=== PATIENT | female | born 1950 ===

== ENCOUNTER 2018-10-27 19:27 | Inpatient (IN) | payer MEDICARE ==
[~2018-10-27] VITALS: Ht 160 cm; Wt 77.7 kg
[2018-10-27 20:31] LABS: BASOPHILS ABSOLUTE AUTO 0.01 K/mm3 (0.00-0.23); BASOPHILS PERCENT AUTO 0 % (0-2); EOSINOPHILS ABSOLUTE AUTO 0.02 K/mm3 (0.00-0.68); EOSINOPHILS PERCENT AUTO 0 % (0-6); Hematocrit 45.4 % (33.0-51.0); Hemoglobin 15.1 g/dL (11.5-16.0); IMMATURE GRAN ABSOLUTE AUTO 0.05 K/mm3 (0.00-0.10); IMMATURE GRAN PERCENT AUTO 1 % (0-1); LYMPHOCYTES ABSOLUTE AUTO 0.54 K/mm3 (0.84-5.20); LYMPHOCYTES PERCENT AUTO 5 % (21-46); MONOCYTES ABSOLUTE AUTO 0.15 K/mm3 (0.16-1.47); MONOCYTES PERCENT AUTO 1 % (4-13); Mean Corpuscular HGB 30.6 pg (26.0-34.0); Mean Corpuscular HGB Conc 33.3 g/dL (31.5-36.5); Mean Corpuscular Volume 92 fL (80-100); Mean Platelet Volume 8.9 fL (9.1-12.4); NEUTROPHILS ABSOLUTE AUTO 9.81 K/mm3 (1.96-9.15); NEUTROPHILS PERCENT AUTO 93 % (41-73); Platelet Count 183 K/mm3 (150-400); RDW Coefficient Variation 13.2 % (11.7-14.2); RDW Standard Deviation 45.1 fL (35.1-46.3); Red Blood Cell Count 4.94 M/mm3 (3.80-5.20); White Blood Cell Count 10.58 K/mm3 (4.00-11.30)
[2018-10-27 20:50] LABS: Albumin, Blood 3.6 g/dL (3.4-5.0); Bilirubin, Total 0.2 mg/dL (0.1-1.0); Bun/Creatinine Ratio 23.2 (12.0-20.0); Calcium, Blood 9.2 mg/dL (8.5-10.1); Creatinine, Blood 0.99 mg/dL (0.40-1.00); Globulin, Blood 3.6 g/dL (2.2-4.0); Potassium, Blood 3.7 mmol/L (3.5-5.5); Total Protein, Blood 7.2 g/dL (6.4-8.2)
[2018-10-27] MEDS ORDERED: HYDROCODON-ACE1 EAC3 PO (21:24)
[2018-10-27] MEDS ORDERED: OXYC10ER PO (21:24)
[2018-10-27] MEDS ORDERED: IBUP800 (21:25)
[2018-10-27] MEDS ORDERED: ALBU90OI61 INH (21:25)
[2018-10-27] MEDS ORDERED: IBUP800 PO (21:25)
[2018-10-27] MEDS ORDERED: BUDE6HFA INH (21:39)
[2018-10-27] MEDS ORDERED: CYCL10 PO (21:39)
[2018-10-27] MEDS ORDERED: Excedrin Extra1 EACH PO (21:39)
[2018-10-27] MEDS ORDERED: ALBU2.5V5 NEB (21:40)
[2018-10-27 23:45] LABS: Source, Urine Clean Catch
[2018-10-27 23:48] LABS: Bilirubin, Urine Neg (Neg); Blood, Urine 2+ (Neg); Glucose Qualitative, Urine Neg (Neg); Ketones, Urine Neg (Neg); Leukocyte Esterase, Urine 1+ (Neg); Nitrite, Urine Neg (Neg); Protein, Urine 1+ (Neg); Urobilinogen, Urine NORM (Normal)
[2018-10-27 23:56] LABS: Appearance, Urine Clear (Clear); Color, Urine Yellow (P-Yellow)
[2018-10-27 23:57] LABS: Bacteria Few /hpf; Red Blood Cells, Urine Rare /hpf (0-2); Squamous Epithelial Cells Few /hpf (Few); White Blood Cells, Urine 0-2 /hpf (0-5)
[2018-10-28 00:39] LABS: Adenovirus Not Detected (NOT DETECT); Bordetella pertussis Not Detected (NOT DETECT); Chlamydophila pneumoniae Not Detected (NOT DETECT); Coronavirus 229E Not Detected (NOT DETECT); Coronavirus HKU1 Not Detected (NOT DETECT); Coronavirus NL63 Not Detected (NOT DETECT); Coronavirus OC43 Not Detected (NOT DETECT); Human Metapneumovirus Not Detected (NOT DETECT); Human Rhinovirus/Enterovirus Not Detected (NOT DETECT); Influenza A Not Detected (NOT DETECT); Influenza A/2009-H1 Not Detected (NOT DETECT); Influenza A/H1 Not Detected (NOT DETECT); Influenza A/H3 Not Detected (NOT DETECT); Influenza B Not Detected (NOT DETECT); Mycoplasma pneumoniae Not Detected (NOT DETECT); Parainfluenza Virus 1 Not Detected (NOT DETECT); Parainfluenza Virus 2 Not Detected (NOT DETECT); Parainfluenza Virus 3 Not Detected (NOT DETECT); Parainfluenza Virus 4 Not Detected (NOT DETECT); Respiratory Syncytial Virus Not Detected (NOT DETECT)
[2018-10-28 04:08] LABS: Hematocrit 41.3 % (33.0-51.0); Hemoglobin 13.7 g/dL (11.5-16.0); Mean Corpuscular HGB 30.4 pg (26.0-34.0); Mean Corpuscular HGB Conc 33.2 g/dL (31.5-36.5); Mean Corpuscular Volume 92 fL (80-100); Mean Platelet Volume 8.9 fL (9.1-12.4); Platelet Count 176 K/mm3 (150-400); RDW Coefficient Variation 13.1 % (11.7-14.2); RDW Standard Deviation 44.4 fL (35.1-46.3); Red Blood Cell Count 4.51 M/mm3 (3.80-5.20); White Blood Cell Count 10.21 K/mm3 (4.00-11.30)
[2018-10-28 04:25] LABS: Alanine Aminotransfer (ALT/SGP 99 U/L (12-78); Albumin, Blood 3.1 g/dL (3.4-5.0); Albumin/Globulin Ratio 0.9 (0.8-1.8); Alk Phos 55 U/L (50-136); Anion Gap 9 mmol/L (6-16); Aspartate Aminotrans (AST/SGOT 87 U/L (12-37); Bilirubin, Total 0.2 mg/dL (0.1-1.0); Blood Urea Nitrogen 18 mg/dL (8-24); Bun/Creatinine Ratio 19.6 (12.0-20.0); CO2, Blood 24 mmol/L (21-32); Calcium, Blood 8.4 mg/dL (8.5-10.1); Chloride, Blood 110 mmol/L (98-108); Creatinine, Blood 0.92 mg/dL (0.40-1.00); Globulin, Blood 3.3 g/dL (2.2-4.0); Glomerular Filtration Rate >60 (60-); Glucose, Blood 192 mg/dL (70-99); Potassium, Blood 3.8 mmol/L (3.5-5.5); Sodium, Blood 143 mmol/L (136-145); Total Protein, Blood 6.4 g/dL (6.4-8.2)
--- NOTE | 2018-10-28 05:29 | NUR ---
SHIFT SUMMARY PT NEW ED ADMIT THIS EVENING. PT FEELING MUCH IMPROVED BY THE TIME SHE ARRIVED. PT FEBRILE AT START OF SHIFT, MEDICATED PER REPORT W/ 1000 MG TYLENOL IN ED, AFEBRILE BY THIS AM. ALSO HTN AND TACHYCARDIC AT START OF SHIFT BUT BOTH IMPROVED THROUGHOUT THE NIGHT. 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 PT TOOK HER OWN OXYCODONE BEFORE ARRIVING TO HER ROOM. DOES NOT AT THIS TIME HAVE HER PAIN MEDICATION ORDERED BUT HAS NOT REQUIRED IT AGAIN THIS EVENING. LUNG SOUNDS DIMINISHED WITH SOME EXPIRATORY WHEEZE. RA WITH O2 SATS IN THE LOWER 90'S. PT DOES NOT WEAR O2 AT HOME. PT FEELING WEEK BUT AMBULATED WELL WITH SBA TO RESTROOM. UA AND RESP PANEL SENT. PT SLEEPING AT THIS TIME.
--- NOTE | 2018-10-28 10:42 | NUR ---
PT CHANGED TO MEDICAL STATUS. PT UPDATED. REPORT CALLED TO MEDICAL FLOOR RN.
--- NOTE | 2018-10-28 11:23 | NUR ---
Avance Directive Education/Spiritual care visit conducted. Patient is sitting up in bed and alert with , Misael, bedside. I talked with them both about the Advance Directive (the process and the importance of it) and left them a booklet to go over at their chase. I also talked with patient about her medical isssues and about her spiritual journey. I listened ampathically, provided pastoral in house counsel and encouragement and provided prayer. Patient and Misael responded well and thanked me for the visit.
--- NOTE | 2018-10-28 12:00 | NUR ---
PT ARRIVED TO ROOM 339 FROM PCU AT 1115 AFTER REPORT RECEIVED. SETTLED IN TO BED WITH AT BEDSIDE. INDEPENDENT IN ROOM. ORIENTED TO AREA AND ROOM.
--- NOTE | 2018-10-28 17:38 | NUR ---
SHIFT SUMMARY PT WITH NO CHANGE SINCE ARRIVAL TO ROOM. RESP STATUS STABLE TODAY. INDEPENDENT IN ROOM. ON ROOM AIR. HAD A HEADACHE THIS AFTERNOON WHICH COFFEE HELPED.
[2018-10-29 05:16] LABS: BASOPHILS ABSOLUTE AUTO 0.02 K/mm3 (0.00-0.23); BASOPHILS PERCENT AUTO 0 % (0-2); EOSINOPHILS PERCENT AUTO 0 % (0-6); Hematocrit 39.2 % (33.0-51.0); Hemoglobin 13.3 g/dL (11.5-16.0); IMMATURE GRAN ABSOLUTE AUTO 0.12 K/mm3 (0.00-0.10); IMMATURE GRAN PERCENT AUTO 1 % (0-1); LYMPHOCYTES ABSOLUTE AUTO 1.63 K/mm3 (0.84-5.20); LYMPHOCYTES PERCENT AUTO 9 % (21-46); MONOCYTES ABSOLUTE AUTO 0.39 K/mm3 (0.16-1.47); MONOCYTES PERCENT AUTO 2 % (4-13); Mean Corpuscular HGB 30.4 pg (26.0-34.0); Mean Corpuscular HGB Conc 33.9 g/dL (31.5-36.5); Mean Corpuscular Volume 90 fL (80-100); NEUTROPHILS ABSOLUTE AUTO 15.49 K/mm3 (1.96-9.15); NEUTROPHILS PERCENT AUTO 88 % (41-73); Platelet Count 205 K/mm3 (150-400); RDW Coefficient Variation 13.3 % (11.7-14.2); RDW Standard Deviation 44.1 fL (35.1-46.3); Red Blood Cell Count 4.37 M/mm3 (3.80-5.20); White Blood Cell Count 17.65 K/mm3 (4.00-11.30)
[2018-10-29 05:39] LABS: Alanine Aminotransfer (ALT/SGP 159 U/L (12-78); Albumin, Blood 3.3 g/dL (3.4-5.0); Alk Phos 50 U/L (50-136); Anion Gap 6 mmol/L (6-16); Aspartate Aminotrans (AST/SGOT 69 U/L (12-37); Bilirubin, Total 0.2 mg/dL (0.1-1.0); Blood Urea Nitrogen 24 mg/dL (8-24); Bun/Creatinine Ratio 27.8 (12.0-20.0); CO2, Blood 25 mmol/L (21-32); Calcium, Blood 8.8 mg/dL (8.5-10.1); Chloride, Blood 110 mmol/L (98-108); Creatinine, Blood 0.86 mg/dL (0.40-1.00); Globulin, Blood 3.3 g/dL (2.2-4.0); Glomerular Filtration Rate >60 (60-); Glucose, Blood 168 mg/dL (70-99); Potassium, Blood 4.5 mmol/L (3.5-5.5); Sodium, Blood 141 mmol/L (136-145); Total Protein, Blood 6.6 g/dL (6.4-8.2)
--- NOTE | 2018-10-29 07:13 | NUR ---
a+o, new IV, denied pain, sob, call light in reach, saline locked, room air, walking rounds completed with day staff
--- NOTE | 2018-10-29 19:13 | NUR ---
PATIENT RESTING IN BED. NO COMPLAINTS OF PAIN OR SOB. HEATING PAD AVAILABLE FOR PATIENT IF NECK PAIN COMES BACK.
[2018-10-30 05:27] LABS: BASOPHILS ABSOLUTE AUTO 0.02 K/mm3 (0.00-0.23); BASOPHILS PERCENT AUTO 0 % (0-2); EOSINOPHILS PERCENT AUTO 0 % (0-6); Hematocrit 39.4 % (33.0-51.0); Hemoglobin 13.3 g/dL (11.5-16.0); IMMATURE GRAN ABSOLUTE AUTO 0.21 K/mm3 (0.00-0.10); IMMATURE GRAN PERCENT AUTO 1 % (0-1); LYMPHOCYTES ABSOLUTE AUTO 2.51 K/mm3 (0.84-5.20); LYMPHOCYTES PERCENT AUTO 12 % (21-46); MONOCYTES ABSOLUTE AUTO 0.74 K/mm3 (0.16-1.47); MONOCYTES PERCENT AUTO 4 % (4-13); Mean Corpuscular HGB 30.6 pg (26.0-34.0); Mean Corpuscular HGB Conc 33.8 g/dL (31.5-36.5); Mean Corpuscular Volume 91 fL (80-100); Mean Platelet Volume 9.3 fL (9.1-12.4); NEUTROPHILS ABSOLUTE AUTO 17.13 K/mm3 (1.96-9.15); NEUTROPHILS PERCENT AUTO 83 % (41-73); Platelet Count 234 K/mm3 (150-400); RDW Coefficient Variation 13.5 % (11.7-14.2); RDW Standard Deviation 45.4 fL (35.1-46.3); Red Blood Cell Count 4.34 M/mm3 (3.80-5.20); White Blood Cell Count 20.61 K/mm3 (4.00-11.30)
[2018-10-30 06:00] LABS: Anion Gap 7 mmol/L (6-16); Blood Urea Nitrogen 29 mg/dL (8-24); CO2, Blood 25 mmol/L (21-32); Calcium, Blood 8.4 mg/dL (8.5-10.1); Chloride, Blood 109 mmol/L (98-108); Creatinine, Blood 0.88 mg/dL (0.40-1.00); Glomerular Filtration Rate >60 (60-); Glucose, Blood 132 mg/dL (70-99); Potassium, Blood 3.8 mmol/L (3.5-5.5); Sodium, Blood 141 mmol/L (136-145)
--- NOTE | 2018-10-30 06:32 | NUR ---
a+o, denies pain, still sob upon exertion, call light, room air, cooperative with care, will continue to monitor and treat until provide walking rounds to day staff
--- NOTE | 2018-10-30 18:36 | NUR ---
PT. LYING QUIETLY ATE 100% OF MEALS, REPORTS PAIN BEING TOLERABLE AT THIS TIME. TIMING FOR OXYCONTIN HAS BEEN CHANGED TO Q8H INSTEAD OF TID, WHICH IS MORE IN KEEPING WITH HER HOME SCHEDULE. HAS BEEN CHANGED TO IV SOLUMEDROL FROM THE PREDNISONE PO. PT. REPORTS SHE STILL DOESN'T FEEL WELL. SPOUSE IN ROOM MOST OF THE DAY.
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
[2018-10-31 05:04] LABS: BASOPHILS ABSOLUTE AUTO 0.03 K/mm3 (0.00-0.23); BASOPHILS PERCENT AUTO 0 % (0-2); EOSINOPHILS PERCENT AUTO 0 % (0-6); Hematocrit 39.9 % (33.0-51.0); Hemoglobin 13.5 g/dL (11.5-16.0); IMMATURE GRAN ABSOLUTE AUTO 0.33 K/mm3 (0.00-0.10); IMMATURE GRAN PERCENT AUTO 2 % (0-1); LYMPHOCYTES ABSOLUTE AUTO 2.02 K/mm3 (0.84-5.20); LYMPHOCYTES PERCENT AUTO 15 % (21-46); MONOCYTES ABSOLUTE AUTO 0.17 K/mm3 (0.16-1.47); MONOCYTES PERCENT AUTO 1 % (4-13); Mean Corpuscular HGB 30.6 pg (26.0-34.0); Mean Corpuscular HGB Conc 33.8 g/dL (31.5-36.5); Mean Corpuscular Volume 91 fL (80-100); Mean Platelet Volume 9.1 fL (9.1-12.4); NEUTROPHILS ABSOLUTE AUTO 11.34 K/mm3 (1.96-9.15); NEUTROPHILS PERCENT AUTO 82 % (41-73); Platelet Count 230 K/mm3 (150-400); RDW Coefficient Variation 13.5 % (11.7-14.2); RDW Standard Deviation 45.1 fL (35.1-46.3); Red Blood Cell Count 4.41 M/mm3 (3.80-5.20); White Blood Cell Count 13.89 K/mm3 (4.00-11.30)
[2018-10-31 05:30] LABS: Albumin, Blood 3.2 g/dL (3.4-5.0); Anion Gap 7 mmol/L (6-16); Blood Urea Nitrogen 27 mg/dL (8-24); Bun/Creatinine Ratio 30.5 (12.0-20.0); CO2, Blood 24 mmol/L (21-32); Calcium, Blood 8.3 mg/dL (8.5-10.1); Chloride, Blood 110 mmol/L (98-108); Creatinine, Blood 0.88 mg/dL (0.40-1.00); Glomerular Filtration Rate >60 (60-); Glucose, Blood 170 mg/dL (70-99); Phosphorus, Blood 3.1 mg/dL (2.5-4.9); Potassium, Blood 4.3 mmol/L (3.5-5.5); Sodium, Blood 141 mmol/L (136-145)
--- NOTE | 2018-10-31 18:45 | NUR ---
NO CHANGE WITH THIS PT TODAY OTHER THAN SHE SAYS SHE FEELS BETTER TODAY. CURRENT REGIMEN OF PAIN MEDS WORKING WELL. POSSIBLE DISCHARGE TOMORROW.
--- NOTE | 2018-11-01 04:02 | NUR ---
SHIFT SUMMARY NO APPARENT ACUTE CHANGES NOTED SO FAR THIS SHIFT. THE PT STATED THAT SHE IS VERY EXCITED TO POSSIBLY DISCHARGE TODAY. THE PT HAD NO COMPLAINTS SO FAR THIS SHIFT. PAIN HAS BEEN MANAGED WITH MEDS PER EMAR. THE PT HAS APPEARED TO SLEEP COMFORTABLY SO FAR THIS SHIFT WITH NO APPARENT SIGNS OF ACUTE DISTRESS. ABLE TO MAKE NEEDS KNOWN AND CALL LIGHT REACH.
[2018-11-01] MEDS ORDERED: IBUP400 PO (13:40)
[2018-11-01] MEDS ORDERED: VICODIN 5-3001 EACH PO (13:42)
[2018-11-01] MEDS ORDERED: BUDE.25 NEB (13:43)
[2018-11-01] MEDS ORDERED: dextromethorphan (13:50)
[2018-11-01] MEDS ORDERED: DOCU100 (13:51)
[2018-11-01] MEDS ORDERED: DOXY100 PO (13:52)
[2018-11-01] MEDS ORDERED: GUAI600T33 PO (13:53)
[2018-11-01] MEDS ORDERED: LEVO750 PO (13:54)
[2018-11-01] MEDS ORDERED: Nicoderm Cq1 EACH TOP (13:55)
[2018-11-01] MEDS ORDERED: DELTASONE20 MG (13:59)
--- NOTE | 2018-11-01 13:59 | NUR ---
DISCHARGE SUMMARY AGUSTINA FEELS READY TO GO HOME. PIV REMOVED, PAPERWORK GONE OVER WITH PT, MEDS FAXED TO PHARMACY. PT LEAVING VIA WHEELCHAIR . PAIN WELL CONTROLLED WITH REGIMEN.
== END 2018-11-01 14:46 | disposition home or self-care (01) | DRG 871 ==
LOC: ER 19:27 → MEDS 21:41 → PCU 21:41 → ER 21:41 → PCU 22:43 → MEDS 10-28 11:32 → ENPENDDIS 11-01 13:08 → MEDS 11-01 14:46
PROVIDERS: Emergency Medicine; Internal Medicine; ADMIT Internal Medicine
DX: A41.9 Sepsis, unspecified organism (principal); J96.01 Acute respiratory failure with hypoxia; J44.1 Chronic obstructive pulmonary disease with (acute) exacerbation; N17.9 Acute kidney failure, unspecified; J44.0 Chronic obstructive pulmonary disease with (acute) lower respiratory infection; E09.9 Drug or chemical induced diabetes mellitus without complications; I10 Essential (primary) hypertension; F17.210 Nicotine dependence, cigarettes, uncomplicated; Z85.3 Personal history of malignant neoplasm of breast; G89.29 Other chronic pain; R65.20 Severe sepsis without septic shock; F41.9 Anxiety disorder, unspecified; J20.9 Acute bronchitis, unspecified
CPT/HCPCS: 36415; 71045; 80048; 80053; 80069; 81001; 83605; 84145; 85025; 85027; 87040; 87086; 87486; 87581; 87633; 87798; 93005; 93010; 94640; 94667; 94760; 94761; 96365; 96375; 99285-25; J0360; J1100; J1650; J1956; J2930; J7030; J7512

== ENCOUNTER → 2019-07-21 | Outpatient (CLI) | payer MEDICARE ==
[~2019-07-21] MED LIST: ALBU2.5V5 NEB; ALBU90OI61 INH; BUDE.25 NEB; BUDE6HFA INH; CYCL10 PO; DELTASONE20 MG; DOCU100; DOXY100 PO; Excedrin Extra1 EACH PO; GUAI600T33 PO; HYDROCODON-ACE1 EAC3 PO; IBUP400 PO; IBUP800; IBUP800 PO; LEVO750 PO; Nicoderm Cq1 EACH TOP; OXYC10ER PO; VICODIN 5-3001 EACH PO; dextromethorphan
[2019-07-21 15:50] LABS: BASOPHILS ABSOLUTE AUTO 0.05 K/mm3 (0.00-0.23); BASOPHILS PERCENT AUTO 1 % (0-2); EOSINOPHILS ABSOLUTE AUTO 0.27 K/mm3 (0.00-0.68); EOSINOPHILS PERCENT AUTO 3 % (0-6); Hematocrit 50.2 % (33.0-51.0); Hemoglobin 16.8 g/dL (11.5-16.0); IMMATURE GRAN ABSOLUTE AUTO 0.04 K/mm3 (0.00-0.10); IMMATURE GRAN PERCENT AUTO 0 % (0-1); LYMPHOCYTES ABSOLUTE AUTO 3.61 K/mm3 (0.84-5.20); LYMPHOCYTES PERCENT AUTO 37 % (21-46); MONOCYTES ABSOLUTE AUTO 0.63 K/mm3 (0.16-1.47); MONOCYTES PERCENT AUTO 6 % (4-13); Mean Corpuscular HGB Conc 33.5 g/dL (31.5-36.5); Mean Corpuscular Volume 90 fL (80-100); Mean Platelet Volume 9.1 fL (9.1-12.4); NEUTROPHILS ABSOLUTE AUTO 5.25 K/mm3 (1.96-9.15); NEUTROPHILS PERCENT AUTO 53 % (41-73); Platelet Count 268 K/mm3 (150-400); RDW Coefficient Variation 13.8 % (11.7-14.2); RDW Standard Deviation 45.6 fL (35.1-46.3); White Blood Cell Count 9.85 K/mm3 (4.00-11.30)
[2019-07-21 16:08] LABS: Bilirubin, Total 0.3 mg/dL (0.1-1.0); Bun/Creatinine Ratio 17.8 (12.0-20.0); Calcium, Blood 9.3 mg/dL (8.5-10.1); Creatinine, Blood 1.07 mg/dL (0.40-1.00); Globulin, Blood 4.2 g/dL (2.2-4.0); Potassium, Blood 3.6 mmol/L (3.5-5.5); Total Protein, Blood 8.2 g/dL (6.4-8.2)
== END ==
LOC: LAB 15:38 → LAB SHORT 15:38
PROVIDERS: Nurse Practitioner
DX: R06.02 Shortness of breath (principal)
CPT/HCPCS: 80053; 85025